=== PATIENT | female | born 1985 | race African-American/Black ===

== ENCOUNTER 2024-04-08 08:09 | Emergency (ER) | payer OTHER ==
[~2024-04-08] VITALS: Ht 165.1 cm; Wt 136.1 kg
[2024-04-08 08:15] VITALS: PULSE 93; RESP 18; TEMP 98.6; O2SAT 100
[2024-04-08 08:59] LABS: CORONAVIRUS COVID-19 AG NEGATIVE (NEGATIVE); INFLUENZA A AG POSITIVE (NEGATIVE); INFLUENZA B AG NEGATIVE (NEGATIVE)
[2024-04-08] MEDS ORDERED: XOFLUZA80 MG PO (09:06)
== END 2024-04-08 09:18 | disposition home or self-care (01) ==
LOC: ER 08:17
DX: R05.9 Cough, unspecified (principal); J10.1 Influenza due to other identified influenza virus with other respiratory manifestations; E11.9 Type 2 diabetes mellitus without complications; J45.909 Unspecified asthma, uncomplicated; Z11.52 Encounter for screening for COVID-19
CPT/HCPCS: 71046; 99283